=== PATIENT | male | born 1985 | race Caucasian/White ===

== ENCOUNTER 2016-10-18 08:50 | Emergency (ER) | payer SELFPAY ==
[~2016-10-18] VITALS: Ht 175.3 cm; Wt 95.7 kg
[~2016-10-18 08:50] MED LIST: PREDNISONE10 MG PO
[2016-10-18 08:57] VITALS: BP 126/72
[2016-10-18] MEDS ORDERED: BENADRYL50 MG PO (09:10)
[2016-10-18] MEDS ORDERED: PREDNISONE20 MG PO (09:24)
== END 2016-10-18 12:31 | disposition home or self-care (01) ==
LOC: EME 08:50
DX: L23.7 Allergic contact dermatitis due to plants, except food (principal); F17.200 Nicotine dependence, unspecified, uncomplicated
CPT/HCPCS: 99281; 99283; J1100